=== PATIENT | female | born 1980 ===

== ENCOUNTER 2022-06-05 14:05 | Outpatient (CLI) | payer OTHER, SELFPAY ==
--- NOTE | ~2022-06-05 | XR_ITS ---
XR wrist RT min 3V DATE: 06/05/2022 14:50 INDICATION: Right wrist pain TECHNIQUE: 4 views COMPARISON: None FINDINGS: No fracture or dislocation, periosteal reaction or bone destruction, erosive change or britney drocalcinosis. IMPRESSION: Negative Reviewed, dictated and finalized at location A. [employer]RAT[employer]IST[employer] IMPRESSION: Negative
--- NOTE | ~2022-06-05 | XR_ITS ---
EXAMINATION:XR cervical spine 4-5V DATE: 06/05/2022 14:50 INDICATION: Neck pain TECHNIQUE: AP, lateral, lateral swimmers and odontoid views of the cervical spine are provided. COMPARISON: None FINDINGS: There is reversal of the normal cervical lordosis. There are 2 mm of retrolisthesis of C5 o n C6. The vertebral body heights are normal. There is no fracture. There is moderate loss of interver tebral disc space height at C3-4, C4-5, and C5-6 and mild loss of disc space height throughout the re mainder of the cervical spine. Small degenerative osteophytes project from the anterior endplates of multiple vertebral bodies. The odontoid is intact. The prevertebral soft tissues are normal. 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 IMPRESSION: 1. Mild to moderate cervical spondylosis without acute findings. Reviewed, dictated and finalized at location B. BEATER
[2022-06-05 18:48] LABS: Basophils Absolute Auto 0.1 K/mm3 (0.0-0.1); Eosinophils Absolute Auto 0.2 K/mm3 (0-0.3); Eosinophils Percent Auto 2.5 % (0-4.4); Hematocrit 34.7 % (37.0-47.0); Hemoglobin 11.3 g/dL (12.0-15.0); Immature Granulocyte Absolute 0.02 K/mm3 (0.00-0.031); Immature Granulocyte Percent A 0.3 % (0-0.5); Lymphocytes Absolute Auto 1.52 K/mm3 (0.9-3.2); Lymphocytes Percent Auto 25.8 % (18.3-44.2); Mean Corpuscular HGB Conc 32.6 g/dl (32-36); Mean Corpuscular Hemoglobin 29.4 pg (26-34); Mean Corpuscular Volume 90.4 fl (80-100); Mean Platelet Volume 10.8 fl (7.4-10.4); Monocytes Absolute Auto 0.5 K/mm3 (0.1-0.6); Monocytes Percent Auto 8.8 % (2.6-8.5); Neutrophils Absolute Auto 3.6 K/mm3 (1.3-6.7); Neutrophils Percent Auto 61.6 % (45.5-73.1); Platelet Count Result 290 k/mm3 (150-375); Red Blood Count 3.84 M/mm3 (4.2-5.4); Red Cell Distribution Width 14.2 % (11.5-14.5); White Blood Count 5.9 K/mm3 (4.5-10.0)
[2022-06-05 18:54] LABS: Alanine Aminotransferase 22 U/L (6-35); Albumin Level 4.2 g/dL (3.5-5.1); Alkaline Phosphatase 77 U/L (38-126); Anion Gap 9 mmol/L (8-16); Aspartate Amino Transferase 50 U/L (14-36); Bilirubin,Total 0.4 mg/dL (0.2-1.3); Blood Urea Nitrogen 12 mg/dL (7-17); Carbon Dioxide 26 mmol/L (22-30); Chloride 105 mmol/L (98-107); Cholesterol 153 mg/dL (0-200); Estimated Glomerular Filt Rate > 60; Glucose 91 mg/dL (65-110); HDL Direct 59 mg/dL; Potassium 3.7 mmol/L (3.4-5.0); Sodium 140 mmol/L (137-145); Triglycerides 64 mg/dL (<150)
[2022-06-05 19:05] LABS: LDL Cholesterol Direct 77 mg/dL
== END 2022-06-05 14:06 | disposition home or self-care (01) ==
PROVIDERS: PCP Family Medicine; Visit Provider Family Medicine
DX: M25.531 Pain in right wrist (principal); M47.892 Other spondylosis, cervical region
CPT/HCPCS: 36415; 72050; 73110; 80053; 80061; 85025